=== PATIENT | male | born 1965 | race Two or more races ===

== ENCOUNTER 2020-04-11 16:42 | Emergency (ER) | payer BC ==
[~2020-04-11] VITALS: Ht 177.8 cm; Wt 79.5 kg
[~2020-04-11 16:42] MED LIST: CYCL-1 PO
[2020-04-11 17:38] VITALS: BP 145/92
== END 2020-04-12 | disposition home or self-care (01) ==
LOC: ER 04-12 01:29
DX: J02.9 Acute pharyngitis, unspecified (principal); R63.0 Anorexia; R50.9 Fever, unspecified; R51.9 Headache, unspecified; R53.83 Other fatigue; Z20.828 Contact with and (suspected) exposure to other viral communicable diseases
CPT/HCPCS: 36415; 99282

== ENCOUNTER 2024-08-21 09:22 | Outpatient (CLI) | payer SELFPAY | END 2024-08-21 23:59 | disposition home or self-care (01) | LOC: RAD 09:22 | PROVIDERS: ATTEND Family Medicine | DX: Z12.2 Encounter for screening for malignant neoplasm of respiratory organs (principal) | CPT/HCPCS: 71271 ==